=== PATIENT | male | born 1960 | race Caucasian/White ===

== ENCOUNTER 2017-09-30 19:52 | Emergency (ER) | payer OTHER, BC ==
[2017-10-01] MEDS ORDERED: MORPHINE IV ONE ×2 (00:44→02:58)
[2017-10-01] MEDS ORDERED: NACL 0.9% 500 ML 500 ML IV ONE ×2 (00:45→02:45)
[2017-10-01] MEDS ORDERED: BOOSTRIX IM ONE (00:47)
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
[2017-10-01 01:01] LABS: Basophils % (Auto) 0.8 % (0.0-1.8); Eosinophils % (Auto) 5.1 % (0.0-4.3); Hematocrit 37.6 % (35.5-45.6); Hemoglobin 12.7 gm/dl (11.8-15.2); Mean Corpuscular HGB Conc 34 % (32-34); Mean Corpuscular Hemoglobin 34 pg (28-32); Mean Corpuscular Volume 99 fl (84-94); Platelet Count 255 K/mm3 (140-440); Red Blood Count 3.79 M/mm3 (3.65-5.03); Red Cell Distribution Width 14.2 % (13.2-15.2); White Blood Count 8.2 K/mm3 (4.5-11.0)
[2017-10-01 01:19] LABS: Calcium 9.1 mg/dL (8.4-10.2); Chloride 101.9 mmol/L (98-107)
[2017-10-01] MEDS ORDERED: NACL ONE (01:37)
[2017-10-01] MEDS ORDERED: NACL 0.9% 1000 ML 1,000 ML IV ONE (02:07)
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
[2017-10-01 05:03] VITALS: BP 143/79
== END 2017-10-01 04:55 | disposition home or self-care (01) ==
LOC: ED 19:52
DX: S40.811A Abrasion of right upper arm, initial encounter (principal); R07.89 Other chest pain; I10 Essential (primary) hypertension; F17.200 Nicotine dependence, unspecified, uncomplicated; Z88.2 Allergy status to sulfonamides; V89.2XXA Person injured in unspecified motor-vehicle accident, traffic, initial encounter; Y93.89 Activity, other specified; Y99.8 Other external cause status; Y92.488 Other paved roadways as the place of occurrence of the external cause
CPT/HCPCS: 36415; 71275; 74177; 80048; 85025; 90471; 90715; 93005; 93010; 96361; 96374; 96376; 99284; J2270; J7040; Q9967